=== PATIENT | male | born 1950 | race Caucasian/White ===

== ENCOUNTER 2016-09-18 16:19 | Observation (INO) ==
[2016-09-18 17:07] LABS: Basophils # 0.1 K/mcL (0.0-0.2); Basophils % 0.8 %; Eosinophils # 0.3 K/mcL (0.0-0.6); Eosinophils % 2.6 %; Hematocrit 39.6 % (37.5-50.1); Hemoglobin 13.5 g/dL (12.9-16.9); Immature Granulocytes % 0.5 % (0-4); Lymphocytes # 2.4 K/mcL (0.6-4.6); Lymphocytes % 22.3 %; Mean Corpuscular HGB Conc 34.1 g/dL (31.6-35.5); Mean Corpuscular Hemoglobin 32.8 pg (28.0-33.3); Mean Corpuscular Volume 96.4 fL (83.0-100.0); Mean Platelet Volume 11.1 fL (9.4-12.4); Monocytes # 1.2 K/mcL (0.0-1.3); Monocytes % 10.6 %; Neutrophils # 6.9 K/mcL (1.6-8.9); Platelet Count 200 K/mcL (140-400); Red Blood Count 4.11 M/mcL (4.19-5.50); Red Cell Distribution Width 12.5 % (11.5-14.5); Segmented Neutrophils % 63.2 %
[2016-09-18 17:22] LABS: BUN/Creatinine Ratio 11 (6-26); Blood Urea Nitrogen 16 mg/dL (8-26); Calcium 8.9 mg/dL (8.6-10.8); Carbon Dioxide 23 mEq/L (19-29); Chloride 106 mEq/L (98-109); Glucose 239 mg/dL (70-99); Osmolality,Calculated 291 (280-300); Potassium 3.9 mEq/L (3.5-4.5); Sodium 136 mEq/L (136-145); eGFR For African Americans > 60 (> 60); eGFR For Non-African Americans 50 (> 60)
[2016-09-18] MEDS ORDERED: *HR* Morphine 2 MG/ML SYRINGE IVP ONE (17:34)
[2016-09-18] MEDS ORDERED: methylPREDNISolone 125 MG/2 ML VIAL IVP ONE (17:34)
[2016-09-18] MEDS ORDERED: Ipratropium/Albuterol Neb 3 ML IH ONE (17:34)
[2016-09-18] MEDS ORDERED: Ondansetron 4 MG/2 ML VIAL IVP ONE (17:34)
--- NOTE | 2016-09-18 18:20 | Emergency Department Note ---
Disposition Clinical Impression: Vocal cord mass, Acute exacerbation of chronic obstructive pulmonary disease ( COPD), Sinus tachycardia Dyspnea Qualifiers: Dyspnea type: shortness of breath Qualified Code(s): R06.02 - Shortness of breath Disposition: Admitted As Inpatient Condition: Good Referrals: Jose Lay DO [Primary Care Provider] - Forms: ED Satisfaction Letter Time of Disposition: 20:44 SOB HPI - General Chief Complaint: ED Shortness of Breath/Dyspnea Stated Complaint: DAVID Time Seen by Provider: 09/18/16 16:26 Source: patient, family Limitations: no limitations Nursing Notes Reviewed: Yes Vital Signs Reviewed: Yes - History of Present Illness 66 year old male with HX of COPD and long standing smoke sttates he has been getting more short of breath latelly. Shahab has a compliated medical history that is confusing from his most recent visits to [facility]. Shahab state he has also been experineicn left sided head and face pain that radiates into his ear and neck which has cindi evaluted by an ENT one year ago for a ruptired tympanic membrane. Since then it had been improving until two weeks ago when he was evaluted at [facility] for simliar complaints and diagnosed with mastoiditis/ sinusitis, and they also obtained soft tissue neck ans was told he "may have cancer of the vocal cords", he subsequently went home and then returned within that two week period for simliar complaints and then was told his blood clutres grew out MRSA which needed vancomycin which he has not recieved yet. Shahab states that since then he has been frustrated about this diagnosis becaseu in the same visit he was told that he does not have cancer. He is also confused. Shahab states his shortness of breath is getting wrose with exertion and that the pain in his left ear and neck are getting worse. His voice is hoarse. Denies fevers, nause,a vomitting, or abdominal pain. Denie chest pain or HX Of DVTs. Although he does have a history of CAD. - Related Data Home Medications Medication Instructions Recorded Confirmed Allopurinol [Zyloprim 100 MG] 100 mg PO DAILY 09/18/16 09/18/16 Aspirin Enteric Coated [Aspirin EC] 81 mg PO DAILY 09/18/16 09/18/16 Atorvastatin Calcium [Lipitor] 20 mg PO HS 09/18/16 09/18/16 Cyclobenzaprine [Flexeril] 10 mg PO TID PRN 09/18/16 09/18/16 Esomeprazole Magnesium [Nexium 40 mg PO DAILY 09/18/16 09/18/16 24Hr] Hydroxyzine HCl 25 mg PO HS 09/18/16 09/18/16 Ibuprofen [Motrin] 800 mg PO TID PRN 09/18/16 09/18/16 Lisinopril/Hydrochlorothiazide 1 each PO DAILY 09/18/16 09/18/16 [Zestoretic 20-12.5 mg Tablet] Oxycodone HCl/Acetaminophen 1 each PO Q8H PRN 09/18/16 09/18/16 [Percocet 7.5-325 mg Tablet] Polyethylene Glycol 3350 17 gm PO DAILY 09/18/16 09/18/16 [Smoothlax] Sildenafil Citrate [Viagra] 50 mg PO AD PRN 09/18/16 09/18/16 Triamcinolone Acet 0.1% CRM 1 appl TP BID 09/18/16 09/18/16 [Kenalog] Allergies Allergy/AdvReac Type Severity Reaction Status Date / Time gabapentin AdvReac Vomiting Verified 09/02/15 10:53 Constitutional: Denies: fever, chills, weakness, weight change Eyes: Denies: eye pain, eye discharge, vision change ENT ED: Reports: ear pain, throat pain. Denies: dental pain, hearing loss, epistaxis, congestion, dysphagia Cardiovascular: Reports: dyspnea on exertion. Denies: chest pain, palpitations , edema, syncope Respiratory: Reports: cough, dyspnea, wheezes. Denies: hemoptysis, stridor Gastrointestinal: Denies: abdominal pain, nausea, vomiting, diarrhea, constipation, hematemesis, melena, hematochezia Genitourinary: Denies: urgency, dysuria, frequency, hematuria Musculoskeletal: Denies: back pain, neck pain, arthralgia, myalgia Integumentary: Denies: rash, abrasion, lesions Neurological: Denies: headache, weakness, numbness, paresthesias, confusion Psychiatric: Denies: anxiety, depression, suicidal thoughts, homicidal thoughts Past Medical History - Past Medical History Medical history: Reports: coronary artery disease, diabetes, hypertension, kidney stones, other Psychiatric history: Reports: no psych history - Social History Smoking Status: Current every day smoker Smokeless Tobacco Status: No Alcohol use: Reports: none Drug use: Reports: none Physical Exam - General Limitations: no limitations General appearance: alert, in no apparent distress, obese - Head Head exam: atraumatic, normocephalic, normal inspection - Eye Eye exam: Present: normal appearance, PERRL, EOMI - Expanded Eye Exam Pupils: Left: reactive - ENT ENT exam: normal exam, normal oropharynx, mucous membranes moist - Expanded ENT Exam External ear exam: Present: normal external inspection, other (anterior left sided neck adenopathy). Absent: mastoid tenderness, pain with movement, external tenderness, periauricular adenopathy Mouth exam: Present: normal external inspection Teeth exam: Present: normal inspection Throat exam: Present: normal inspection - Neck Neck exam: Present: normal inspection, full ROM, trachea midline - Chest Chest inspection: Present: normal inspection, symmetric chest wall rise - Respiratory Respiratory exam: Present: wheezes (mild posterior bilateral) - Cardiovascular Cardiovascular exam: Present: regular rate, normal rhythm, normal heart sounds - Abdominal Exam Abdominal exam: Present: soft, Non-Tender. Absent: tenderness, distention, guarding, rebound, rigidity - Extremities Exam Extremities exam: Present: normal inspection, full ROM. Absent: tenderness, pedal edema - Expanded Upper Extremity Exam Shoulder exam: Present: normal inspection, full ROM Arm exam: Present: normal inspection, full ROM Elbow exam: Present: normal inspection, full ROM Forearm/Wrist exam: Present: normal inspection, full ROM Hand exam: Present: normal inspection, full ROM Vascular exam: Normal: capillary refill, radial pulse - Expanded Lower Extremity Exam Hip/Pelvis exam: Present: normal inspection, full ROM Upper leg exam: Present: normal inspection, full ROM Knee exam: Present: normal inspection, full ROM Lower leg exam: Present: normal inspection, full ROM Ankle exam: Present: normal inspection, full ROM Foot/toe exam: Present: normal inspection, full ROM Neurovascular/Tendon exam: Absent: motor deficit, sensory deficit, tendon deficit - Back Exam Back exam: Present: normal inspection, full ROM. Absent: tenderness - Neurological Exam Neurological exam: Present: alert, oriented X3 - Expanded Neurological Exam Patient oriented to: Present: person, place, time Coma Scale Eye Opening: Spontaneous Coma Scale Motor Response: Obeys Commands Coma Scale Verbal Response: Oriented Coma Scale Total: 15 - Psychiatric Psychiatric exam: Present: normal affect, normal mood - Skin Skin exam: Present: warm, dry, intact, normal color Course Course Narrative: we will do a focused cardiax examination, tawny de dios, in aiddition to treat his pain with morphine and obtain the old records from [facility]. - Consultations Consultation #1: discussed case with Dr. Jones and he will accept consult with admission to hospitalist for scope of his vocal cords. hospitalist paged. Time: 20:43 Vital Signs Temperature 98.6 F 09/18/16 16:20 Pulse Rate 102 09/18/16 16:20 Respiratory Rate 18 09/18/16 16:20 Blood Pressure 146/78 09/18/16 16:20 O2 Sat by Pulse Oximetry 97 09/18/16 16:20 Temperature 98.6 F 09/18/16 16:20 Pulse Rate 104 09/18/16 22:38 Respiratory Rate 20 09/18/16 22:38 Blood Pressure 154/88 09/18/16 22:38 O2 Sat by Pulse Oximetry 95 09/18/16 22:38 Oxygen Delivery Oxygen Delivery Room Air Shortness of Breath/Dyspnea - Lab Data Result diagrams: 09/18/16 16:52 09/18/16 16:52 Lab Results 09/18/16 09/18/16 09/18/16 Range/Units 16:52 16:52 16:52 WBC 11.0 (4.3-11.1) K/mcL RBC 4.11 L (4.19-5.50) M/mcL Hgb 13.5 (12.9-16.9) g/dL Hct 39.6 (37.5-50.1) % MCV 96.4 (83.0-100.0) fL MCH 32.8 (28.0-33.3) pg MCHC 34.1 (31.6-35.5) g/dL RDW 12.5 (11.5-14.5) % Plt Count 200 (140-400) K/mcL MPV 11.1 (9.4-12.4) fL Immature Gran % 0.5 (0-4) % Seg Neutrophils % 63.2 % Lymphocytes % 22.3 % Monocytes % 10.6 % Eosinophils % 2.6 % Basophils % 0.8 % Neutrophils # 6.9 (1.6-8.9) K/mcL Lymphocytes # 2.4 (0.6-4.6) K/mcL Monocytes # 1.2 (0.0-1.3) K/mcL Eosinophils # 0.3 (0.0-0.6) K/mcL Basophils # 0.1 (0.0-0.2) K/mcL ESR (0-10) mm/hr Sodium 136 (136-145) mEq/L Potassium 3.9 (3.5-4.5) mEq/L Chloride 106 (98-109) mEq/L Carbon Dioxide 23 (19-29) mEq/L BUN 16 (8-26) mg/dL Creatinine 1.43 H (0.72-1.25) mg/dL Est GFR ( Amer) > 60 (> 60) Est GFR (Non-Af Amer) 50 L (> 60) BUN/Creatinine Ratio 11 (6-26) Glucose 239 H (70-99) mg/dL Calculated Osmolality 291 (280-300) Calcium 8.9 (8.6-10.8) mg/dL Troponin I 0.00 (0-0.03) ng/mL B-Natriuretic Peptide (0-100) pg/mL 09/18/16 09/18/16 Range/Units 16:52 16:52 WBC (4.3-11.1) K/mcL RBC (4.19-5.50) M/mcL Hgb (12.9-16.9) g/dL Hct (37.5-50.1) % MCV (83.0-100.0) fL MCH (28.0-33.3) pg MCHC (31.6-35.5) g/dL RDW (11.5-14.5) % Plt Count (140-400) K/mcL MPV (9.4-12.4) fL Immature Gran % (0-4) % Seg Neutrophils % % Lymphocytes % % Monocytes % % Eosinophils % % Basophils % % Neutrophils # (1.6-8.9) K/mcL Lymphocytes # (0.6-4.6) K/mcL Monocytes # (0.0-1.3) K/mcL Eosinophils # (0.0-0.6) K/mcL Basophils # (0.0-0.2) K/mcL ESR 33 H (0-10) mm/hr Sodium (136-145) mEq/L Potassium (3.5-4.5) mEq/L Chloride (98-109) mEq/L Carbon Dioxide (19-29) mEq/L BUN (8-26) mg/dL Creatinine (0.72-1.25) mg/dL Est GFR ( Amer) (> 60) Est GFR (Non-Af Amer) (> 60) BUN/Creatinine Ratio (6-26) Glucose (70-99) mg/dL Calculated Osmolality (280-300) Calcium (8.6-10.8) mg/dL Troponin I (0-0.03) ng/mL B-Natriuretic Peptide 13 (0-100) pg/mL - EKG Data EKG attestation: Yes I reviewed and interpreted this EKG. EKG results narrative: sinus tachycardia with rat eof 112. NO STEMI normal intervals. occasional PVCs/. #2: MAT with rate of 116. NO STEMI. occasional PVCs. done because of HR elevating to 170s Attestation Statement - Attestation Attestation: I personally interviewed and examined this patient and my medical decision- making was reviewed with the ED Resident Physician, Dr. Rai. I agree with the documented findings, disposition and treatment plan as described except to the extent set forth below. Patient is a 66-year-old white male who presents to the emergency department today with his family with concerns for abnormal test results that he has received multiple visits at [facility] emergency department. Patient has been having numerous chronic issues over the past month, including left ear pain which began with a TM rupture approximately a year ago, since that time patient states that his ear continues to have throbbing pain that radiates down the left side of his anterior neck. Patient states the pain has worsened to the point over the past 2 months that he has difficulty sleeping secondary to this pain. Patient reports that he was evaluated in mid August and has the ED paper work with him in regards to his evaluation for this ear pain. Patient reports that he had CT scanning done of his head and neck and was told that he had mastoiditis and was discharged from the emergency department on antibiotics. Patient has had ongoing symptoms despite taking medication as prescribed by the ED and has not followed up with any physician on an outpatient basis. Patient also states that he was told during one of his ER visit that he had blood cultures that were positive for MRSA. He was not told to return to the hospital he was not given IV antibiotics and there is some confusion amongst he and his in regards to these test results and he did not call his family doctor for clarification. Patient also complains of some mild shortness of breath and wheezing that he has had over the past week and apparently was evaluated again at [facility] emergency department 48 hours ago and diagnosed with acute bronchitis and exacerbation of COPD. Patient was not initiated on any antibiotics and was told to take his inhalers and follow-up with his family doctor. The last issue patient has had chronically is a 2 month history of gradually worsening hoarseness. Patient denies any pain with swallowing or difficulty managing his secretions but states that his voice is continued to become more hoarse. Patient states that a doctor at [facility] in the emergency department and told him that he felt this was related to an incidental finding on his CAT scan in mid August which showed thickening of his vocal cords. On the paperwork they have with them. States that this was found on his CT scan and that he was to follow up with his family doctor as well as ENT and schedule follow-up in regards to this finding. Patient states he has not scheduled an appointment with any ENT doctor. Patient states his next scheduled visit with his family doctors at the end of October. Patient comes in today complaining of some mild shortness of breath although no signs of respiratory distress no evidence of hypoxia. Patient does have a coarse voice but is managing secretions well and is not having any emergent airway compromise. Patient does seem to have some tenderness to palpation of the left anterior neck with some mild adenopathy appreciated on that side and complains of ear pain although here exam is normal. Patient has no mastoid tenderness or erythema appreciated on exam. Patient's very anxious expresses frustration in regards to confusion about his test results and came here for clarification and a reevaluation of these symptoms. We did request records from the ED from [facility] in regards to these visits to for clarification those are still pending at this time. He should have labs done as well as EKG and chest x-ray and had a breathing treatment for his shortness of breath. We still have not obtained these records from [facility] and because patient's main complaint is continued ear and neck pain we are going to go ahead with imaging here at our facility. 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 Went ahead and discussed the case with ENT Dr. Jones, who agreed with direct visualization and will plan to see the patient in the morning. Patient was accepted for admission by Dr. Khalil. Patient remains in stable condition here, mild improvement in tachycardia with IV fluids. Patient hemodynamically stable.
[2016-09-18] MEDS ORDERED: 0.9 % Sodium Chloride 1,000 ML IVC ONE (20:45)
--- NOTE | 2016-09-18 23:19 | Internal Med History&Physical ---
Date of Encounter: 09/18/16 Time of Encounter: 23:16 Assessment and Plan (1) Left-sided face pain Current visit: Yes Status: Acute Etiology is not evident at this time, differential to include trigeminal neuralgia, his sedimentation rate is normal, this is been ongoing, he has no myalgias or visual disturbance, I do not believe this is temporal arteritis. I don't believe he is getting referred pain from the vocal cord. It may be beneficial to trial Tegretol. This pain has been for the most part intractable, although he doesn't appear to be incapacitated with the pain. I do not believe there is drug seeking behavior. (2) COPD (chronic obstructive pulmonary disease) Current visit: Yes Status: Chronic This appears stable at this time. Qualifiers: Qualified Code(s): J44.9 - Chronic obstructive pulmonary disease, unspecified (3) Essential hypertension Current visit: Yes Status: Chronic (4) Chronic pain syndrome Current visit: Yes Status: Chronic Spinal pain seems to be spinal pain is controlled at this time. (5) History of gout Current visit: Yes Status: Chronic (6) GERD without esophagitis Current visit: Yes Status: Chronic (7) Vocal cord mass Current visit: Yes Status: Acute Concern is for malignancy, ENT evaluation in the morning, the senior solutions workflow consultant has already been notified. (8) Hyperglycemia Current visit: Yes Status: Acute I think he does have a component of glucose intolerance, he has had steroids recently, we'll check an A1c, it is possible he could have diabetes at this time. Internal Medicine - H&P: HPI Chief complaint: Intractible L facial pain/ Vocal Cord Mass Admitted From: Home Plans for Post Hospital Care: Home History of present illness: Mr. Kraft is a 66 year old male who presents to the ER with continued left facial pain. This has been progressive for some time with the past couple weeks. He said at least 3 if not 4 different visits to different healthcare facilities without getting the answers, he is noticeably frustrated. His story is a little confusing, he is a questionable historian. But it seems like the pain starts around the left submandibular area and he can spread to the left cheek as well as up to the temporal area. It is not made worse with eating or facial grimace. The same amount of time, he is appreciated some hoarseness, in fact CT scan of the soft tissues of the neck, today has disclosed what appears to be a mass on a vocal cord. From what I can tell, looking at the ER documentation, he had a recent hospital stay, not at [facility], discharged 3 days ago for treatment of mastoiditis on the left hand side. I have spent some time reviewing his office notes, he sees one of the family practice residents. Does not appear to be drug seeking in his behavior. Apparently the investigations consultant head was notified out of the emergency room, and we'll see him in the morning. 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 Does have spinal stimulator in place) Psychiatric history: no psych history - Past Surgical History Surgical History: cholecystectomy, other (Previous spinal surgery, lumbar spine) - Social History Smoking Status: Current every day smoker Smokeless Tobacco Status: No Alcohol use: none Drug use: none - Family History Mother Living Status: (Complications of diabetes) Father Living Status: (Diabetes and heart disease) Hx Family Cardiac Disorders: Yes Internal Medicine - H&P: Meds Allopurinol [Zyloprim 100 MG] 100 mg PO DAILY 09/18/16 [History] Aspirin Enteric Coated [Aspirin EC] 81 mg PO DAILY 09/18/16 [History] Atorvastatin Calcium [Lipitor] 20 mg PO HS 09/18/16 [History] Cyclobenzaprine [Flexeril] 10 mg PO TID PRN 09/18/16 [History] Esomeprazole Magnesium [Nexium 24Hr] 40 mg PO DAILY 09/18/16 [History] Hydroxyzine HCl 25 mg PO HS 09/18/16 [History] Ibuprofen [Motrin] 800 mg PO TID PRN 09/18/16 [History] Lisinopril/Hydrochlorothiazide [Zestoretic 20-12.5 mg Tablet] 1 each PO DAILY [History] Oxycodone HCl/Acetaminophen [Percocet 7.5-325 mg Tablet] 1 each PO Q8H PRN 09/18 [History] Polyethylene Glycol 3350 [Smoothlax] 17 gm PO DAILY 09/18/16 [History] Sildenafil Citrate [Viagra] 50 mg PO AD PRN 09/18/16 [History] Triamcinolone Acet 0.1% CRM [Kenalog] 1 appl TP BID 09/18/16 [History] Allergies gabapentin Adverse Reaction (Verified 09/02/15 10:53) Vomiting All Systems PM: A 10-system review of systems was performed and is negative for pertinent findings except as documented above in the HPI. - Constitutional Constitutional: as per HPI, no chills, no fatigue, no fever(s), no lethargy, no weakness - EENT Eyes: no blurry vision, no change in vision, no diplopia, no dry eye, no pain - Cardiovascular Cardiovascular ROS IM: dyspnea on exertion, no chest pain, no diaphoresis, no orthopnea, no paroxysmal nocturnal dyspnea - Respiratory Respiratory: no wheezing, no snoring, no stridor, no pain with cough Additional comments: He does have a diagnosis of COPD, he did not relate any problems breathing to me but did make a notation to the ER provider. He is in bed quite comfortable. Positive for progressive hoarseness - Gastrointestinal Gastrointestinal: no abdominal pain, no change in bowel habits, no heartburn, no nausea, no vomiting - Musculoskeletal Musculoskeletal ROS IM: back pain, neck pain - Integumentary Integumentary IM: no rash - Neurological Neurological ROS: confusion, no abnormal gait, no memory loss - Allergic/Immunologic Allergic/Immunologic: no tongue swelling, no throat swelling, no lip swelling - Constitutional Vitals: Temp Pulse Resp BP Pulse Ox 98.6 F 104 20 157/88 95 09/18/16 16:20 09/18/16 22:38 09/18/16 23:01 09/18/16 23:01 09/18/16 22:38 General appearance: Present: A&O X 3, pleasant, no acute distress, obese. Absent: answers questions appropriately - Head Head exam: Present: atraumatic, normocephalic - Eye Eye exam: Present: EOMI, PERRL, sclera anicteric. Absent: conjunctival injection, periorbital swelling - ENT ENT exam: Present: mucous membranes moist, normal oropharynx Additional comments: Without T, no pharyngeal erythema, no drainage or purulence. Moving tongue fully. Neck is supple, no adenopathy. Some pain under the left angle of the jaw - Neck Neck exam general surgery: Present: full ROM, normal inspection, tenderness, supple, trachea midline. Absent: lymphadenopathy, nuchal rigidity - Respiratory Respiratory exam: Present: CTAB - Cardiovascular Cardiovascular exam: Present: RRR - GI/Abdominal GI/Abdominal exam: Present: soft, no peritoneal signs. Absent: rebound, rigid, splenomegaly - Extremities Exam Extremities exam: Absent: calf tenderness, cyanotic, joint swelling, pedal edema - Neurological Exam Neurological exam: Present: alert, CN II-XII intact, no focal deficits. Absent : motor sensory deficit, facial droop, speech deficit Internal Med - H&P Results - Labs CBC & Chem 7: 09/18/16 16:52 09/18/16 16:52
[2016-09-18] MEDS ORDERED: *HR* OxyCODONE/APAP 7.5/325 TABLET PO PRN (23:36)
[2016-09-19] MEDS: carBAMazepine 200 MG TABLET PO SCH ×2 (00:58→08:19)
[2016-09-19 01:11] LABS: Hemoglobin A1C 8.1 %
[2016-09-19] MEDS ORDERED: Nicotine 21 MG PATCH.TD24 TD SCH (03:00)
[2016-09-19 04:22] LABS: Amphetamine Screen,Urine Negative ng/mL (Cutoff=1000); Barbiturate Screen,Urine Negative ng/mL (Cutoff=200); Benzodiazepines Screen,Urine Negative ng/mL (Cutoff=200); Cannabinoid Screen,Urine Negative ng/mL (Cutoff = 50); Cocaine Screen,Urine Negative ng/mL (Cutoff= 300); Opiate Screen,Urine Positive ng/mL (Cutoff=300); Phencyclidine Screen,Urine Negative ng/mL (Cutoff=25)
--- NOTE | 2016-09-19 07:50 | ENT - Consult Note ---
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 non obstructing lesoin and is the cause of his hoarseness. OK to feed the patient today and have him f/u with Dr. Dockery next week for office visit and to schedule Direct Laryngoscopy and biopsy in the OR. This was discussed with the patient. Some of his breathing issues secondary to COPD but also may be related to MARTIN. Sleepy study may be helpful. Stop smoking. Thanks for the consult History of Present Illness Consult date: 09/19/16 Reason for ENT Consult: other (Vocal Cord Mass) Requesting physician: Chrissy aRi History of present illness: 66 year old male who presented to the ED for shortness of breath and COPD flare up. He has had hoarseness for several months which has gotten worse. He developed left sided sharp pains in left neck and left ear. Treated several weeks ago at outside hospital for ? ear infectoin/mastoiditis. The left facail/ neck pain comes and goes. Increased hoarseness over the past month. No real ST, dysphagia or pain with swallowing. No hemoptysis. Does have GERD. Does have SOB with activity and over the past year has gained over 27 lbs. ? sleep apnea. Does have some episodes at night when he awakens gasping for air. Noted on CT scan to have left vocal cord mass. Does smoke daily one ppd. Does not drink. Past Med Surg Social Fam HX - Past Medical History Medical history: COPD, coronary artery disease, hypertension, kidney stones, other Psychiatric history: no psych history - Past Surgical History Surgical History: cholecystectomy, vasectomy, other - Social History Smoking Status: Current every day smoker Packs per day: 1/4 pack Smokeless Tobacco Status: No Alcohol use: none Drug use: none - Family History Mother Living Status: Father Living Status: Hx Family Cardiac Disorders: Yes Medications and Allergies Allopurinol [Zyloprim 100 MG] 100 mg PO DAILY 09/18/16 [History] Aspirin Enteric Coated [Aspirin EC] 81 mg PO DAILY 09/18/16 [History] Atorvastatin Calcium [Lipitor] 20 mg PO HS 09/18/16 [History] Cyclobenzaprine [Flexeril] 10 mg PO TID PRN 09/18/16 [History] Esomeprazole Magnesium [Nexium 24Hr] 40 mg PO DAILY 09/18/16 [History] Hydroxyzine HCl 25 mg PO HS 09/18/16 [History] Ibuprofen [Motrin] 800 mg PO TID PRN 09/18/16 [History] Lisinopril/Hydrochlorothiazide [Zestoretic 20-12.5 mg Tablet] 1 each PO DAILY [History] Oxycodone HCl/Acetaminophen [Percocet 7.5-325 mg Tablet] 1 each PO Q8H PRN 09/18 [History] Polyethylene Glycol 3350 [Smoothlax] 17 gm PO DAILY 09/18/16 [History] Sildenafil Citrate [Viagra] 50 mg PO AD PRN 09/18/16 [History] Triamcinolone Acet 0.1% CRM [Kenalog] 1 appl TP BID 09/18/16 [History] Allergies gabapentin Adverse Reaction (Verified 09/02/15 10:53) Vomiting ENT Exam Initial Vital Signs Temp Pulse Resp BP Pulse Ox 98.6 F 102 18 146/78 97 09/18/16 16:20 09/18/16 16:20 09/18/16 16:20 09/18/16 16:20 09/18/16 16:20 Exam Initial Vital Signs Temp Pulse Resp BP Pulse Ox 98.6 F 102 18 146/78 97 09/18/16 16:20 09/18/16 16:20 09/18/16 16:20 09/18/16 16:20 09/18/16 16:20 Awake, alert, obese male in NAD Raspy, hoarse voice and some straining, mild breathiness. Speech clear No facial or neck asymmetry and no stridor EAC mild wax no auricular lesions or deformity Tm's WNLno LOUIS Nose mild deformity and no lesoins Mild right Sd, thickened septum No shun pus or poyps but narrowed anterior choana bilaterally OC/OP edentulous. no lesions or asymmetries tongue moves symmetrically an dpalate elevates symmetrically Pharynx without lesions or masses Neck thick, supple,no LAD or neck masses no thyroid or salivary gland lesions CN's II-XII grossly intact Fiberoptic laryngoscopy recommended and verbal consent obtained Afrin and 4 5 lidocaine placed in left nares for 5 minutes Flexible scope passed on left. no nasal lesions or polyps [employer] symmetrical and no lesions OP with prominent BOT, large tongue and no lesion sor asymmetries epiglottis WNL, vallecula clear. Hypopharynx without pooling Bilateral TVC mobility but left TVC appeared sluggish and diminished Left exophytic, leukoplakic lesions extending the whole lenght of TVC and on FVC Anterior commissure clear and airway patent. Limited examination as patient started with anxiety/gagging when I attempted closer expection of the lesoin Results - Labs 09/18/16 16:52 09/18/16 16:52 Abnormal lab results RBC 4.11 M/mcL (4.19-5.50) L 09/18/16 16:52 ESR 33 mm/hr (0-10) H 09/18/16 16:52 Creatinine 1.43 mg/dL (0.72-1.25) H 09/18/16 16:52 Est GFR (Non-Af Amer) 50 (> 60) L 09/18/16 16:52 Glucose 239 mg/dL (70-99) H 09/18/16 16:52 Hemoglobin A1c 8.1 % (-5.6) H 09/18/16 16:52 Urine Opiates Screen Positive ng/mL (Mekihn=548) H 09/19/16 03:32 All other labs normal. - Imaging Additional studies: CT of neck reviewed on [employer]/PACS Consult Discharge Plan - Plan Referrals: Jose Lay DO [Primary Care Provider] -
--- NOTE | 2016-09-19 10:39 | Discharge Summary ---
Date of Encounter: 09/19/16 Time of Encounter: 10:30 - Discharge Diagnosis (1) Vocal cord mass Priority: Primary Status: Acute (2) Left-sided face pain Priority: Secondary Status: Acute (3) COPD (chronic obstructive pulmonary disease) Priority: Secondary Status: Chronic Qualifiers: COPD type: unspecified COPD Qualified Code(s): J44.9 - Chronic obstructive pulmonary disease, unspecified (4) Essential hypertension Priority: Secondary Status: Chronic - Discharge Medications Prescriptions: CarBAMazepine [Tegretol] 200 mg PO BID #60 tablet Home Medications: Allopurinol [Zyloprim 100 MG] 100 mg PO DAILY 09/18/16 [History] Aspirin Enteric Coated [Aspirin EC] 81 mg PO DAILY 09/18/16 [History] Atorvastatin Calcium [Lipitor] 20 mg PO HS 09/18/16 [History] Cyclobenzaprine [Flexeril] 10 mg PO TID PRN 09/18/16 [History] Esomeprazole Magnesium [Nexium 24Hr] 40 mg PO DAILY 09/18/16 [History] Hydroxyzine HCl 25 mg PO HS 09/18/16 [History] Ibuprofen [Motrin] 800 mg PO TID PRN 09/18/16 [History] Lisinopril/Hydrochlorothiazide [Zestoretic 20-12.5 mg Tablet] 1 each PO DAILY [History] Oxycodone HCl/Acetaminophen [Percocet 7.5-325 mg Tablet] 1 each PO Q8H PRN 09/18 [History] Polyethylene Glycol 3350 [Smoothlax] 17 gm PO DAILY 09/18/16 [History] Sildenafil Citrate [Viagra] 50 mg PO AD PRN 09/18/16 [History] Triamcinolone Acet 0.1% CRM [Kenalog] 1 appl TP BID 09/18/16 [History] CarBAMazepine [Tegretol] 200 mg PO BID #60 tablet 09/19/16 [Rx] Allergies/Adverse Reactions: Allergies gabapentin Adverse Reaction (Verified 09/02/15 10:53) Vomiting Date of admission: 09/18/16 22:52 Primary care physician: Jose Lay DO Consults: 09/18/16 20:40 Consult to ENT [CONS] Stat Consulting Provider: ENT [facility] Reason for Consult: vocal cord mass concerning for squamous cell carcinoma Time Notified: 20:42 Call Completed: Yes Discharging clinician: Jena Flynn Anticipated date of discharge: 09/19/16 - Patient Status Disposition: Home, Self-Care Condition: Good Functional capacity at discharge: independent ambulation Overall status at discharge: patient is progressing back to baseline - Discharge Instructions Instructions: Carbamazepine (By mouth) Follow Up With: oJse Lay DO [Primary Care Provider] - 09/25/16 4:00 pm Agueda Dockery DO [Non-Partnered Physician] - 10/05/16 8:45 am Additional Instructions: With ENT in 1 week - Diet and Activity Activity: resume usual activities as tolerated Diet: low fat, low cholesterol, low salt diet Hospital course: Mr. Kraft is a 66 year old male who was observed in the hospital after he presented with severe left-sided cancino pain. He had been evaluated at different Facilities for similar complaints and was discharged 3 days back at a different hospital with treatment for mastoiditis. He was evaluated by ENT here and with indirect laryngoscopy was found to have a left vocal cord lesion which would need further workup. This could be also contributing to his pain. For now we are starting him on treatment for the pain with carbamazepine as his symptoms resemble trigeminal neuralgia. He will follow-up with ENT for further evaluation and panendoscopy with biopsies. - Time Spent with Patient Total time spent providing and/or coordinating discharge services: Less than 30 minutes (25 min) - Constitutional Vitals: Temp Pulse Resp BP Pulse Ox 97.7 F 107 18 130/75 96 09/19/16 06:43 09/19/16 06:43 09/19/16 06:43 09/19/16 06:43 09/19/16 06:43 General appearance: Present: A&O X 3, pleasant, no acute distress, obese. Absent: answers questions appropriately - Neck Neck exam general surgery: Present: supple, trachea midline. Absent: lymphadenopathy - Respiratory Respiratory exam: Present: CTAB. Absent: accessory muscle use, rales, rhonchi, wheezes - Cardiovascular Cardiovascular exam: Present: RRR, +S1, +S2. Absent: diastolic murmur, gallop, rubs, systolic murmur - GI/Abdominal GI/Abdominal exam: Present: normal bowel sounds, soft, no peritoneal signs. Absent: distended, tenderness - Extremities Exam Extremities exam: Present: warm, radial pulses palpable and symetrical. Absent : calf tenderness, cyanotic, pedal edema - Neurological Exam Neurological exam: Present: alert, CN II-XII intact, oriented X3, no focal deficits. Absent: facial droop, speech deficit - Skin Skin exam: Present: dry, intact - VTE Reasons for not Prescribing Prophylaxis: Treatment not Indicated - Low risk for VTE
[2016-09-19 12:31] VITALS: BP 130/75
--- NOTE | 2016-09-19 18:44 | Electrocardiograph Report ---
[address] [address] Test Date: 2016-09-18 Pat Name: Kenyon Kraft Department: 102 Room: 3B23 Gender: M [employer]: : 1950 Requested By: Arelis Redmond Order Number: [id number] Reading MD: Jodie Sandoval Measurements Intervals [place] Rate: 112 P: 63 DC: 129 QRS: 9 QRSD: 89 T: 69 QT: 338 QTc: 404 Interpretive Statements SINUS TACHYCARDIA WITH FREQUENT VENTRICULAR PREMATURE COMPLEXES WITH OCCASIONAL SUPRAVENTRICULAR PREMATURE COMPLEXES ABNORMAL RHYTHM ECG Electronically Signed On 09-19-2016 18:42:38 EDT by Jodie Sandoval
--- NOTE | 2016-09-19 18:52 | Electrocardiograph Report ---
[place] [address] Test Date: 2016-09-18 Pat Name: Kenyon Kraft Department: 105 Room: 3B23 Gender: M Plumbing Foreman: : 1950 Requested By: Jena Flynn Order Number: [id number] Reading MD: Jodie Sandoval Measurements Intervals [place] Rate: 116 P: DE: 0 QRS: 25 QRSD: 92 T: 67 QT: 317 QTc: 386 Interpretive Statements SINUS TACHYCARDIA WITH OCCASIONAL SUPRAVENTRICULAR PREMATURE COMPLEXES Electronically Signed On 09-19-2016 18:51:09 EDT by Jodie Sandoval
== END 2016-09-19 12:14 | disposition home or self-care (01) ==
LOC: 3BNU 16:19 → EMEROO 16:19 → SUATTDRO 22:52 → 3BNU 23:03
PROVIDERS: ADMIT Internal Medicine; ATTEND Internal Medicine